=== PATIENT | female | born 1990 | race African-American/Black ===

== ENCOUNTER 2018-08-30 16:57 | Emergency (ER) | payer SELFPAY ==
[~2018-08-30] VITALS: Ht 144.8 cm; Wt 80.7 kg
--- NOTE | 2018-08-30 17:56 | PHYS DOC ---
Past Medical History Past Medical History: Hypertension Past Surgical History: No Surgical History Alcohol Use: None Drug Use: None Adult General Chief Complaint Chief Complaint: MULTIPLE COMPLAINTS HPI HPI Patient is a 28 year old female presents to the ED complaining of shortness of breath after eating a recent meal. Patient states she has pain that goes up the middle of her chest starting at her abdomen. States it started after she ate. Patient had tamales, refried beans and rice. Describes the pain as sharp. Rates the pain as 6 out of 10. States she has also been burping. States similar episodes in the past. Patient did not take any antacids. Denies abdominal pain, nausea/vomiting, diarrhea, blood in stool, recent travel, lower leg swelling, headache, palpitations, fever or dizziness. Review of Systems Review of Systems Constitutional: Denies fever or chills [] Eyes: Denies change in visual acuity, redness, or eye pain [] HENT: Denies nasal congestion or sore throat [] Respiratory: Complains of shortness of breath. Denies cough [] Cardiovascular: No additional information not addressed in HPI [] GI: Denies abdominal pain, nausea, vomiting, bloody stools or diarrhea [] : Denies dysuria or hematuria [] Musculoskeletal: Denies back pain or joint pain [] Integument: Denies rash or skin lesions [] Neurologic: Denies headache, focal weakness or sensory changes [] All other systems were reviewed and found to be within normal limits, except as documented in this note. Current Medications Current Medications Current Medications Medications (Trade) Dose Ordered Sig/[facility] Start Time Stop Time Status Last Admin Dose Admin Famotidine (Pepcid Vial) 20 mg 1X ONCE 08/30/18 18:15 08/30/18 18:16 DC 08/30/18 18:38 20 MG Ondansetron HCl (Zofran) 4 mg 1X ONCE 08/30/18 18:15 08/30/18 18:16 DC 08/30/18 18:37 4 MG Allergies Allergies Allergies Coded Allergies Type Severity Reaction Last Updated Verified No Known Drug Allergies 08/30/18 No Physical Exam Physical Exam Constitutional: Well developed, well nourished, no acute distress, non-toxic appearance. [] HENT: Normocephalic, atraumatic, bilateral external ears normal, oropharynx moist, no oral exudates, nose normal. [] Eyes: PERRLA, EOMI, conjunctiva normal, no discharge. [] Neck: Normal range of motion, no tenderness, supple, no stridor. [] Cardiovascular:Heart rate regular rhythm, no murmur [] Lungs & Thorax: Bilateral breath sounds clear to auscultation [] Abdomen: Bowel sounds normal, soft, no tenderness, no masses, no pulsatile masses. [] Skin: Warm, dry, no erythema, no rash. [] Back: No tenderness, no CVA tenderness. [] Extremities: No tenderness, no cyanosis, no clubbing, ROM intact, no edema. [] Neurologic: Alert and oriented X 3, normal motor function, normal sensory function, no focal deficits noted. [] Psychologic: Affect normal, judgement normal, mood normal. [] Current Patient Data Vital Signs Vital Signs Date Time Temp Pulse Resp B/P (MAP) Pulse Ox O2 Delivery O2 Flow Rate FiO2 08/30/18 21:51 68 16 119/71 (87) 99 Room Air 08/30/18 17:40 98.3 98.3 Lab Values Laboratory Tests Test 08/30/18 17:54 08/30/18 18:28 08/30/18 20:50 POC Urine HCG, Qualitative Hcg negative (Negative) White Blood Count 4.8 x10^3/uL (4.0-11.0) Red Blood Count 4.35 x10^6/uL (3.50-5.40) Hemoglobin 11.5 g/dL (12.0-15.5) L Hematocrit 35.1 % (36.0-47.0) L Mean Corpuscular Volume 81 fL (79-100) Mean Corpuscular Hemoglobin 27 pg (25-35) Mean Corpuscular Hemoglobin Concent 33 g/dL (31-37) Red Cell Distribution Width 15.4 % (11.5-14.5) H Platelet Count 302 x10^3/uL (140-400) Neutrophils (%) (Auto) 59 % (31-73) Lymphocytes (%) (Auto) 32 % (24-48) Monocytes (%) (Auto) 7 % (0-9) Eosinophils (%) (Auto) 1 % (0-3) Basophils (%) (Auto) 1 % (0-3) Neutrophils # (Auto) 2.9 x10^3uL (1.8-7.7) Lymphocytes # (Auto) 1.6 x10^3/uL (1.0-4.8) Monocytes # (Auto) 0.3 x10^3/uL (0.0-1.1) Eosinophils # (Auto) 0.0 x10^3/uL (0.0-0.7) Basophils # (Auto) 0.0 x10^3/uL (0.0-0.2) D-Dimer (Peyton) 0.29 ug/mlFEU (0.00-0.50) Sodium Level 140 mmol/L (136-145) Potassium Level 4.2 mmol/L (3.5-5.1) Chloride Level 106 mmol/L (98-107) Carbon Dioxide Level 27 mmol/L (21-32) Anion Gap 7 (6-14) Blood Urea Nitrogen 8 mg/dL (7-20) Creatinine 0.7 mg/dL (0.6-1.0) Estimated GFR (Cockcroft-Gault) 120.6 Glucose Level 100 mg/dL (70-99) H Calcium Level 8.7 mg/dL (8.5-10.1) Troponin I Quantitative < 0.017 ng/mL (0.000-0.055) Laboratory Tests 08/30/18 18:28 Laboratory Tests 08/30/18 20:50 EKG EKG [] Radiology/Procedures Radiology/Procedures [] Course & Med Decision Making Course & Med Decision Making Pertinent Labs and Imaging studies reviewed. (See chart for details) []Discussed lab and imaging findings with patient. Patient's symptoms resolved with medication in the ED. States she is feeling much better. Negative d-dimer, troponin and imaging. Discussed symptomatic treatment, acid reflux and follow- up outpatient with PCP early next week. Discussed reasons to return to the ED. Patient understands and agrees with plan. Dragon Disclaimer Dragon Disclaimer This electronic medical record was generated, in whole or in part, using a voice recognition dictation system. Departure Departure Impression: Primary Impression: Acid reflux Disposition: HOME, SELF-CARE Condition: IMPROVED Referrals: NO PCP (PCP) RAKESH CRISTOBAL MD Patient Instructions: Gastroesophageal Reflux Disease, Adult Scripts Omeprazole (OMEPRAZOLE) 20 Mg Tablet.dr 1 TAB PO DAILY for 14 Days, #14 TAB 0 Refills Prov: JOSE MISTRY 08/30/18 JOSE MISTRY Aug 30, 2018 17:56
[2018-08-30] MEDS ORDERED: ONDANSETRON PF 4 MG/2 ML VIAL. IV ONE (18:15)
[2018-08-30] MEDS ORDERED: FAMOTIDINE 20 MG/2 ML VIAL IVP ONE (18:15)
[2018-08-30 18:41] LABS: BASO % 1 % (0-3); EOS % 1 % (0-3); HEMATOCRIT 35.1 % (36.0-47.0); HEMOGLOBIN 11.5 g/dL (12.0-15.5); LYMPH # 1.6 x10^3/uL (1.0-4.8); LYMPH % 32 % (24-48); MEAN CORPUSCULAR HEMOGLOBIN 27 pg (25-35); MEAN CORPUSCULAR HGB CONC 33 g/dL (31-37); MEAN CORPUSCULAR VOLUME 81 fL (79-100); MONO # 0.3 x10^3/uL (0.0-1.1); MONO % 7 % (0-9); NEUT # 2.9 x10^3uL (1.8-7.7); NEUT % 59 % (31-73); PLATELET COUNT 302 x10^3/uL (140-400); RED BLOOD COUNT 4.35 x10^6/uL (3.50-5.40); RED CELL DISTRIBUTION WIDTH 15.4 % (11.5-14.5); WHITE BLOOD COUNT 4.8 x10^3/uL (4.0-11.0)
--- NOTE | 2018-08-30 20:28 | EKG ---
[facility] [address] [place] [id number] Test Date: 2018-08-30 Test Time: 17:49:39 Pat Name: JENIFER ALMONTE Department: Room: Gender: F [place] Operator: : 1990 Requested By: JOSE MISTRY Order Number: [id number] Reading MD: Drew Tomlin MD Measurements Intervals [place] Rate: 76 P: 37 HI: 160 QRS: 23 QRSD: 84 T: 33 QT: 366 QTc: 416 Interpretive Statements SINUS RHYTHM NON-SPECIFIC ST/T CHANGES Electronically Signed On 09-10-2018 11:00:22 CDT by Drew Tomlin MD
[2018-08-30 21:10] LABS: CALCIUM 8.7 mg/dL (8.5-10.1); CREATININE 0.7 mg/dL (0.6-1.0); GFR 120.6; POTASSIUM 4.2 mmol/L (3.5-5.1)
[2018-08-30] MEDS ORDERED: OMEP20TA8 PO (21:32)
[2018-08-30 21:51] VITALS: BP 119/71
--- NOTE | 2018-08-31 07:38 | RAD ---
CHEST AP ONLY Clinical Indication: LEFT SIDE CHEST PAIN 2 DAYS, SOA STARTED TODAY Comparison: 06/22/2010 two-view chest x-ray exam. Findings: The cardiomediastinal silhouette is normal. Lungs are clear. There is no pneumothorax. No pleural effusion is appreciated. No acute bone abnormality. IMPRESSION: No acute cardiopulmonary process. Electronically signed by: Justin Turpin MD (08/31/2018 7:35 AM) [facility]
== END 2018-08-30 22:01 | disposition home or self-care (01) ==
LOC: ER 16:57
DX: K21.9 Gastro-esophageal reflux disease without esophagitis (principal); R06.02 Shortness of breath; I10 Essential (primary) hypertension
CPT/HCPCS: 36415; 71045; 80048; 81025; 84484; 85025; 85379; 93005; 96374; 96375; 99284; J2405; J3490; 99283